=== PATIENT | female | born 1960 | race Asian ===

== ENCOUNTER 2017-01-13 09:09 | Day surgery (SDC) | payer OTHER, MEDICAID ==
[2017-01-13] VITALS (10 sets, daily range): BP systolic 92–131; BP diastolic 62–75; PULSE 48–63; TEMP 97.8
[~2017-01-13] VITALS: Ht 154.9 cm; Wt 73.0 kg
[2017-01-13 09:50] LABS: HEMATOCRIT 42.9 % (37.0-47.0); HEMOGLOBIN 14.3 g/dl (12.5-16.0); MEAN CELL VOLUME 84 fl (80.0-100.0); MEAN CORPUSCULAR HEMOGLOBIN 28 pg (27.0-31.0); MEAN CORPUSCULAR HGB CONC 33 g/dl (33.0-37.0); PLATELET COUNT 324 K/mm3 (130-400); REDCELL DISTRIBUTION WIDTH-CV 13.2 % (11.5-14.5); WHITE BLOOD COUNT 4.5 K/mm3 (4.8-10.8)
[2017-01-13] MEDS ORDERED: PLAVIX 300MG T300 MG PO (09:52)
[2017-01-13] MEDS ORDERED: NORVASC2.5 MG PO (09:53)
[2017-01-13] MEDS ORDERED: NITROSTAT0.4 MG/TAB SL (09:54)
[2017-01-13 09:55] LABS: PROTHROMBIN TIME 10.8 SECONDS (9.7-12.8)
[2017-01-13] MEDS ORDERED: ASPIRIN 32325 MG/TAB PO (09:56)
[2017-01-13] MEDS ORDERED: blood pressure PO (09:57)
[2017-01-13] MEDS ORDERED: VITAMIN D31000 I1 PO (09:58)
[2017-01-13 10:00] LABS: CALCIUM 9.5 mg/dL (8.4-10.2); CREATININE, serum 0.8 mg/dL (0.52-1.25); POTASSIUM 4.1 mmol/L (3.4-5.0)
[2017-01-13] MEDS ORDERED: CATAPRES 0.1MG0.1 MG PO (10:00)
[2017-01-13] MEDS ORDERED: [UNRECOGNIZED DRUG - REMARK] PO (10:01)
[2017-01-13] MEDS ORDERED: DEPRESSION MED PO ×2 (10:03→10:04)
[2017-01-13] MEDS ORDERED: NEXIUM 40MG40 MG PO (12:30)
[2017-01-13] MEDS ORDERED: PROTONIX 40MG T40 MG PO (19:11)
== END 2017-01-13 16:30 | disposition home or self-care (01) ==
LOC: COL.CAR 09:09
PROVIDERS: Internal Medicine Cardiovascular Disease
DX: R07.9 Chest pain, unspecified (principal); R06.00 Dyspnea, unspecified; I25.10 Atherosclerotic heart disease of native coronary artery without angina pectoris; Z95.5 Presence of coronary angioplasty implant and graft; I10 Essential (primary) hypertension; R60.9 Edema, unspecified; Z79.02 Long term (current) use of antithrombotics/antiplatelets
CPT/HCPCS: J2250; J3010; Q9967